=== PATIENT | male | born 1990 | race Caucasian/White ===

== ENCOUNTER 2022-03-31 22:46 | Emergency (ER) | payer MEDICAID ==
[~2022-03-31] VITALS: Ht 172.7 cm; Wt 70.3 kg
[2022-03-31 23:37] VITALS: BP 144/89
[2022-04-01] MEDS ORDERED: IBUPROFEN 400 MG TABLET PO ONE
== END 2022-03-31 23:57 | disposition home or self-care (01) ==
LOC: ER 22:49
DX: M79.10 Myalgia, unspecified site (principal); V43.52XA Car driver injured in collision with other type car in traffic accident, initial encounter; Y93.89 Activity, other specified; Y92.89 Other specified places as the place of occurrence of the external cause; Y99.8 Other external cause status